=== PATIENT | female | born 1980 | race Caucasian/White ===

== ENCOUNTER 2025-06-19 11:02 | Outpatient (RCR) | payer OTHER, SELFPAY ==
--- NOTE | 2025-06-19 15:53 | [facility].PTOPEV ---
PT Evaluation Rehab PT Outpatient Evaluation Start: 06/19/25 11:09 Freq: Status: Active Protocol: Document 06/19/25 11:09 STEPHANIE (Rec: 06/19/25 15:53 STEPHANIE [id number]) E-signed By Molly Madden, PT Outpatient Therapy Subjective History Subjective History Pt is a 45 y/o female who reports chronic back for ~40 years with worsening of pain over the past 4 months without known trauma or injury. Pt reports most recent imaging of her low back ~12 years ago showing a cyst on her spine. Pt states she saw a neurosurgeon at that time who told her surgery would paralyze her and regardless she would be in a wheelchair by the age of 50. Pt denies having a second opinion. Pt reports fear- avoidance behavior since being told this. Pt states she has been taking pain medication for a few years and has received multiple injections in her back for pain. Pt states she also takes Aleve and smokes marijuana to assist with back pain. Pt reports current symptoms of constant pulling of her R>L low back. Pt reports intermittent sharp pain that radiates up her back to between her shoulders with twisting, rolling and reaching movements. Pt states this same pain often wakes her up at night when she twists and turns trying to get comfortable. Pt reports poor sleep health due to pain. Pt reports fear of movement and pain/ difficulty with ADLs and increased pain with standing and walking >15 minutes. Pt denies radiating pain into her legs but does report throbbing sensation of bilateral knees. Pt also reports intermittent burning sensations of the plantar and lateral aspects of both of her feet. Pt reports her legs also feel weak with prolonged standing and walking. Pt denies required use of an AD or recent falls. Pt denies b/b dysfunction, fever, n/v, chills, night sweats, or sudden weight gain or loss. Pt reports history of her back popping' causing sudden numbness and weakness of both legs lasting 2 weeks in length. Pt reports this has occurred 3x in her lifetime with most recent experience 10 years ago. Medical History (per pt): Depression, PTSD, Chronic LBP , Hypertension New diagnosis of No cancer in past 12 months? Chief Complaint Pain Symptom Type Throb,Sharp,Stabbing,Burning,Numbness,Tingling Symptoms Relieved By Rest/Positioning,Heat Current Functional Lifting,Housework,Dressing,Sleeping,Standing,Sitting, Limitations Squatting,Walking,Balance Symptom Description Constant but Variable Level of pain today 3 (0-10) Pain scale - at its 2 best (0-10) Pain scale - at its 10 worst (0-10) Lumbopelvic Eval Palapation tenderness bilateral lumbar spinal Yes tenderness paraspinal Yes: R>L tenderness buttock tenderness Yes: R>L Lumbar/Sacral Tenderness Palpation Findings Lumbar/Sacral 4/4 TTP hypersensitivity with light touch palpation Palpation Overall Comment Range of Motion Lumbar Spine Active 30 Flexion Range of Motion (degrees) Lumbar Spine Active 15 Extension Range of Motion (degrees) Left Lumbar Spine 8 Lateral Flexion Active Range of Motion (degrees) Right Lumbar Spine 5 Lateral Flexion Active Range of Motion (degrees) Manual Muscle Test Left Knee Extension 5 Normal Strength Grade Knee Flexion 5 Normal Strength Grade Hip Flexion Strength 4- Good- Grade Hip Abduction 4- Good- Strength Grade Hip Adduction 4- Good- Strength Grade Hip Extension 4- Good- Strength Grade Ankle Dorsiflexion 5 Normal Strength Grade Right Knee Extension 4+ Good+ Strength Grade Knee Flexion 4+ Good+ Strength Grade Hip Flexion Strength 3 Fair Grade Hip Abduction 4- Good- Strength Grade Hip Adduction 4- Good- Strength Grade Hip Extension 4- Good- Strength Grade Ankle Dorsiflexion 5 Normal Strength Grade DTR Rt Patellar 2+ Lt Patellar 2+ Rt Gastroc/Soleus 2+ Lt Gastroc/Soleus 2+ Altered Sensation Bilateral LE Dermatome Level L4,L5,S1 Comment decreased light touch right compared to left Special Tests Sciatic Nerve Negative Left,Negative Right Tension Test Unilateral Straight Negative Left,Negative Right Leg Raise (Lasegue) Test Oswestry Index Section 1 Pain Intensity The pain comes and goes and is severe Section 2 Personal Care ( increase the pain and I find it necessary to change my Washing,Dresing) way of doing it Section 3 Lifting I can only lift very light weights at most Section 4 Walking I cannot walk more than 1/4 mile without increasing pain Section 5 Sitting Pain prevents me from sitting for more than one hour Section 6 Standing I cannot stand more than 10 minutes without increasing pain Section 7 Sleeping Because of my pain, my normal night's sleep is less than 6 hours sleep Section 8 Social Life Pain has restricted my social life to my home Section 9 Traveling Pain restricts me to short necessary journeys under 30 minutes Section 10 Changing Degreee of My pain is rapidly getting worse Pain Score and Risk Level Oswestry Score 37 Oswestry Risk Level Completely Disabled Miscellaneous Dx PT Eval Objective Objective Slump test: negative bilaterally with report of poking sensations of her thigh and calf on the right side Outpatient Therapy Assessment Impairments Problems/ Palpation Tenderness,Impaired Range of Motion,Impaired Impairmments Strength,Impaired Transfers,Impaired Walking,Impaired Standing,Impaired Sitting,Impaired Lifting,Impaired Household Care,Impaired Squatting,Impaired Bending, Impaired Recreational Activities,Subjective C/O Pain, Impaired Self Care/Self Management Prognosis Rehab Potential Good Clinical Impression Consistent with Yes Diagnosis Additional details: No imaging of the thoracic or lumbar spine available to review this date. Recommend updated imaging due to severity of pain and pt report of previous findings of a cyst to rule out more sinister conditions. PT Patient Goals PT Patient Goals PT Short Term 3 weeks: Patient Goals 1. verbalize compliance with HEP to assist with progress. 2. Improve pain at worst to 8/10 to improve overall QOL /function. 3. Improve JESSE score to 32 or less to improve overall QOL/function. 4. Improve lumbar AROM flex to at least 50 to improve mobility and function. 5. Improve tenderness to palpation of mid-low back to 3 /4 or less to assist with pain. PT Residential Patient 6 weeks: Goals 1. Improve lumbar AROM flex to at least 60-70, LF to 10 to improve mobility and function. 2. Improve BLE MMT to 4-4+/5 grossly to assist with function. 3. Improve tenderness to palpation of mid-low back to 2 /4 or less to assist with pain. 4. Improve pain at worst to 6/10 to improve overall QOL /function. 5. Improve JESSE score to 27 or less to improve overall QOL/function. Outpatient Therapy Plan of Care Treatment Plan May Include Therapeutic Exercise Yes Including Home Exercise Program Manual Therapy Yes Techniques Neuromuscular Re- Yes education Therapeutic Yes Activities to Return to Previous Functional/Work Level ADL/Self Care Yes Education Mechanical Traction Yes Dry Needling Yes Thermal Modalities Yes Electrical Yes Stimulation Ultrasound/ Yes Phonophoresis Iontophoresis Yes Massage Yes Group Therapy for Yes Medicare Eval/Re-Eval Yes Aquatic Therapy Yes Frequency Times per week 2 Duration Number of Weeks 4-6 Addendums This patient is a No candidate for social or vocational rehab ? Patient/Guardian Yes verbally acknowledges understanding of treatment program and consents to further treatment? Patient/Guardian Yes verbally acknowledges understanding of diagnosis, prognosis and goals for treatment? Eval Complexity PT Charges 02912 - Low Complexity Shoulder/Elbow Eval Shoulder Objective Measurements Elbow Objective Measurements PHYSICIAN CERTIFICATION: I certify the specified therapy services for [facility] are required, authorized, and reviewed every 30 days.
== END 2025-06-19 23:59 | disposition home or self-care (01) ==
LOC: PT 11:02
PROVIDERS: Visit Provider Nurse Practitioner Family
DX: M54.59 Other low back pain (principal)
CPT/HCPCS: 97161